=== PATIENT | female | born 1960 | race Caucasian/White ===

== ENCOUNTER → 2017-04-07 | Outpatient (CLI) | payer BC ==
[~2017-04-07] MED LIST: CELEXA PO; DIAZEPAM PO; HYDROCODON-ACE1 EAC7 PO; IBUPROFEN PO; MULTI-DAY VITAM1 TAB PO; VICODIN PO
--- NOTE | ~2017-04-07 | EKG ---
PATIENT: JANETTE MEEHAN UNIT #: [id number] Ventricular Rate: 79 BPM Atrial Rate: 79 BPM P-R Interval: 170 ms QRS Duration: 92 ms Q-T Interval: 364 ms QTC Calculation(Bezet): 417 ms P Union: 65 degrees Calculated R Union: 27 degrees Calculated T Union: 36 degrees Diagnosis Line: Normal sinus rhythm Diagnosis Line: Normal ECG Diagnosis Line: When compared with ECG of 02-FEB-2012 11:39, Diagnosis Line: No significant change was found Diagnosis Line: Confirmed by PILO OVIEDO MD ([id number]) on Diagnosis Line: 04/07/2017 8:32:01 AM INTERPRETING MD: PREET ARAUJO
== END | disposition home or self-care (01) ==
LOC: SEKG 08:04
DX: I10 Essential (primary) hypertension (principal)
CPT/HCPCS: 93005